=== PATIENT | female | born 1945 | race Two or more races ===

== ENCOUNTER 2024-05-05 07:25 | Outpatient (CLI) | payer OTHER | END 2024-05-05 07:41 | disposition home or self-care (01) | LOC: MRI 07:25 | DX: R59.0 Localized enlarged lymph nodes (principal) | CPT/HCPCS: 70543; Q9965 ==

== ENCOUNTER 2024-05-05 07:56 | Outpatient (CLI) | payer OTHER ==
[2024-05-05 09:01] LABS: CREATININE SERUM 0.98 mg/dL (0.55-1.02)
== END 2024-05-05 07:58 | disposition home or self-care (01) ==
LOC: LAB 07:56
PROVIDERS: ATTEND Radiology Diagnostic Radiology
DX: R59.0 Localized enlarged lymph nodes (principal)

== ENCOUNTER 2024-05-09 09:37 | Outpatient (CLI) | payer OTHER | END 2024-05-09 09:40 | disposition home or self-care (01) | LOC: SONOGRAMA 09:37 | PROVIDERS: ATTEND Pathology Anatomic Pathology | DX: L02.11 Cutaneous abscess of neck (principal); E04.1 Nontoxic single thyroid nodule ==